=== PATIENT | male | born 1970 | race Caucasian/White ===

== ENCOUNTER 2017-01-25 11:36 | Emergency (ER) | payer OTHER ==
[~2017-01-25] VITALS: Ht 182.9 cm; Wt 101.7 kg
[2017-01-25 12:44] VITALS: BP 160/100
[2017-01-25] MEDS ORDERED: FLUO10CA13 PO (12:44)
[2017-01-25] MEDS ORDERED: LISI5TAB7 PO (12:44)
== END 2017-01-25 13:06 | disposition home or self-care (01) ==
LOC: ED 11:55
DX: S43.102A Unspecified dislocation of left acromioclavicular joint, initial encounter (principal); S30.810A Abrasion of lower back and pelvis, initial encounter; I10 Essential (primary) hypertension; F17.210 Nicotine dependence, cigarettes, uncomplicated; W18.30XA Fall on same level, unspecified, initial encounter; Y93.89 Activity, other specified; Y92.828 Other wilderness area as the place of occurrence of the external cause; Y99.9 Unspecified external cause status
CPT/HCPCS: 99284